=== PATIENT | female | born 1990 | race Caucasian/White ===

== ENCOUNTER 2023-05-10 16:51 | Emergency (ER) | payer BC, MEDICAID, SELFPAY ==
[2023-05-10 17:08] VITALS: BP 134/88; PULSE 92; RESP 18; TEMP 36.4; O2SAT 99; BMI 30.2
--- NOTE | 2023-05-10 18:30 | ED_ITS ---
HPI - Animal Bite General: Chief Complaint: Animal Bite Stated Complaint: dog bites Time Seen by Provider: 05/10/23 18:24 History of Present Illness: Patient presents to the ER with complaints of multiple dog bites. Patient has bites to her left elbow region left buttock region and left thigh region. Patient says she was walking down the road with when she was attacked by 3 dogs. Patient did report this to [facility]'s office. The complaint was filed. Bleeding is controlled. Patient does not know when her last tetanus shot was. Review of Systems General: Reports: 10 or more systems reviewed and unremarkable except in HPI and below Physical Exam Const: COMMON NORMALS: no acute distress, average body habitus, patient oriented x3, no limitations, healthy appearing, alert and well nourished HENMT: COMMON NORMALS: normocephalic, atraumatic, hearing grossly normal bilaterally, external ears normal, Normal external nose present, moist oral mucous membranes and oropharynx normal HEAD & SCALP: normocephalic and atraumatic NOSE: Normal external nose present EXTERNAL EAR: Yes external ears normal Neck/C-Spine: COMMON NORMALS: no JVD Chest: COMMONS NORMALS: normal inspection of the chest and normal palpation of entire chest wall Resp: COMMON NORMALS: normal respiratory effort, No retractions, No use of accessory muscles and clear to auscultation bilaterally AUSCULTATION: clear to auscultation bilaterally Cardio: COMMON NORMALS: no JVD, regular rate, regular rhythm, S1 normal heart sound present, S2 normal heart sound present, No gallops present (Cardio), No clicks present (Cardio), No murmurs present (Cardio) and No rub (Cardio) RATE: regular rate RHYTHM: regular rhythm HEART SOUNDS: S1 normal heart sound present and S2 normal heart sound present Extremity: NARRATIVE EXTREMITY EXAM: Patient has multiple puncture wounds on her near her left gluteal crease, left outer thigh, left elbow. These are mainly puncture wounds and small tears. Bleeding is controlled. The wound to be cleaned and Steri-Strips and benzoin applied and dressed. Neuro: COMMON NORMALS: patient oriented x3 SENSORIUM/ORIENTATION: Yes alert Course Vital Signs: Vital signs: Vital Signs Temperature 97.6 F 05/10/23 17:08 Pulse Rate 92 05/10/23 17:08 Respiratory Rate 18 05/10/23 17:08 Blood Pressure 134/88 05/10/23 17:08 Pulse Oximetry 99 05/10/23 17:08 Oxygen Delivery Me thod Room Air 05/10/23 17:08 MDM - Animal Bite Medical Decision Making Patient was bit multiple times by multiple dogs. The wounds were cleaned and bandages applied. Patient was given Augmentin prophylactically in ER as well as a tetanus shot and will be sent home with a prescription for Augmentin. Patient should follow-up with her PCP within 7 to 10 days for further evaluation and treatment. When nursing went into treat the patient patient was no longer there. Nursing gave her an extended period of time and the patient never showed back up with room. We anticipate patient eloped after I saw her and evaluated her. I do not have a pharmacy to send her prescription to. Differential Diagnosis Likely bite by animal; Unlikely cat bite, dog bite or rabies contact Medical Records I reviewed the patient's medical records. Lab Data I reviewed the patient's lab results. No radiology studies performed this visit Discharge Plan Discharge Patient Disposition: Home Clinical Impression: Dog bite Qualifiers: Encounter type: initial encounter Qualified Code(s): W54.0XXA - Bitten by dog, initial encounter Condition: Stable Prescriptions: New amoxicillin-pot clavulanate 875-125 mg tablet 1 tab PO Q12H Qty: 14 0RF Discharge Orders: Discharge ED (Routine); Ordered 05/10/23 Ordered By: Basim Sharma Patient Instructions: Animal Bite (ED) Activity Restrictions/Additional Instructions: Please keep wounds clean and dry, change dressings as needed, please take all your antibiotics. If wounds become overly painful, the drainage becomes foul- smelling or purulent or the wounds become red with streaks please return to the ER for further treatment. Otherwise please follow-up with your family practice doctor in 7 to 10 days. Coding Level of Care Code ED Director Engineering for [employer]
== END 2023-05-10 18:55 | disposition home or self-care (01) ==
PROVIDERS: Emergency Provider Emergency Medicine
DX: S51.052A Open bite, left elbow, initial encounter (principal); S71.152A Open bite, left thigh, initial encounter; S31.825A Open bite of left buttock, initial encounter; W54.0XXA Bitten by dog, initial encounter
CPT/HCPCS: 99283